=== PATIENT | female | born 2005 | race Caucasian/White ===

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

== ENCOUNTER 2025-06-11 12:41 | Emergency (ER) | payer BC, SELFPAY ==
--- NOTE | 2025-06-11 12:42 | ED.SKABFB ---
HPI - Skin/Abscess/Foreign Bdy General Chief complaint: Animal Bite Stated complaint: dog bite Time Seen by Provider: 06/11/25 13:00 Source: patient, RN notes reviewed and old records reviewed Mode of arrival: ambulatory Limitations: no limitations History of Present Illness HPI narrative: 19-year-old female presents to the [facility] with a abrasion/ puncture to the right lateral calf. States that she was bit by the neighbor's dog. Area is clean and dry. No erythema. Occurred just prior to arrival. Not up-to-date tetanus Related Data Allergies Allergy/AdvReac Type Severity Reaction Status Date / Time No Known Allergies Allergy Verified 06/11/25 13:01 Review of Systems Review of Systems: All systems reviewed & are unremarkable except as noted in HPI and below Constitutional: Constitutional: Reports no additional constitutional complaints ENT: Reports system reviewed and no additional complaints, except as documented Cardiovascular: Cardiovascular: Reports no additional cardiovascular complaints, Denies chest pain and Denies dyspnea Respiratory: Respiratory: Reports no additional respiratory complaints, Denies chest congestion, Denies cough and Denies dyspnea Musculoskeletal: Musculoskeletal: Reports no additional musculoskeletal complaints Integumentary/Breasts: Skin/Breast: Reports as per HPI [facility] Surgical History Surgical History (Updated 01/13/23 @ 11:01 by Meeta Cerrato) History of surgery (~2005) 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 Family History Family History (Updated 01/13/23 @ 11:02 by Meeta Cerrato) Father Hypertension CHF (congestive heart failure) Social History Social History (Updated 01/13/23 @ 10:59 by Meeta Cerrato) Smoking status: Never smoker Substance use: never Lack of Transportation: No Lack of Food: Never True Current Housing: I Have Housing Concerned About Future Housing: No Difficulty Paying Gas/Electric Bills: No Difficulty Paying for Meds: No Currently Unemployed: No Education: High School Diploma/GED Difficulty w/ Childcare or Family Care: No Comments At the time of my signature, I reviewed and agree with the nursing past medical, surgical, social, and family history. There is no relevant family history pertinent to the patient complaint. Exam Const: General: cooperative, healthy appearing, comfortable, no acute distress, well developed, alert and well nourished Nutritional Appearance: well nourished Orientation/consciousness: patient oriented x3 Limitations: no limitations HENMT: Head: normal to inspection Eyes: General: appearance normal, both eyes and all related structures Alignment and Position: alignment normal Neck: Neck: normal visual inspection, full ROM, no lymphadenopathy and no meningeal signs Chest: Chest palpation & inspection: normal inspection of the chest Resp: Effort & Inspection: normal respiratory effort and able to speak in complete sentences Cardio: Rate: regular rate Skin: General skin exam: normal color and no rashes or lesions noted Full body images:  1. 0.5 cm puncture/ abrasion no bleeding. No erythema, no swelling Neuro: General: patient oriented x3, gait normal, moves all extremities and no meningeal signs Cognition (Neuro): normal cognition Speech: normal speech Gait exam (Neuro): Normal gait present Extrem: General: normal to inspection, full ROM, capillary refill normal and normal gait Psych: Appearance: grossly normal and well kempt Mental Status: mental status grossly normal Speech and movement: Normal speech and movement present and Clear speech present Affect: normal affect Attitude: cooperative Course Course Level of Care: Express Care Visit Vital Signs Vital signs: Vital Signs Temperature 97.8 F 06/11/25 12:54 Pulse Rate 76 06/11/25 12:54 Respiratory Rate 16 06/11/25 12:54 Blood Pressure 112/84 06/11/25 12:54 Pulse Oximetry 100 06/11/25 12:54 Oxygen Delivery Room Air 06/11/25 12:54 Temperature 97.8 F 06/11/25 12:54 Pulse Rate 76 06/11/25 12:54 Respiratory Rate 16 06/11/25 12:54 Blood Pressure 112/84 06/11/25 12:54 Pulse Oximetry 100 06/11/25 12:54 Oxygen Delivery Room Air 06/11/25 12:54 Reviewed MDM - Skin/Abscess/Foreign Bdy MDM Narrative Medical decision making narrative: patient sitting in exam room. Patient is nontoxic vitals stable. Patient presents with puncture wound abrasion from a dog tooth that occurred just prior to arrival. Has full range of motion of the knee and ankle. Tdap was updated. Area was cleaned. Patient placed on antibiotics reduce the chances of infection patient appropriate for outpatient treatment and close follow-up Discharge instructions reviewed with patient, as well as provided in writing per nursing staff. The instructions also include specific and strict return/GO TO THE ER as well as f/u information. All questions have been answered, and the patient deny any further questions with discharge and discharge plan. Some parts of this dictation were generated by voice recognition software and may contain typographical and/or grammatical inaccuracies. Differential Diagnosis Differential diagnosis: Likely abscess of skin or subcutaneous tissue, cellulitis and contact dermatitis Critical Care Time Critical Care Time Critical Care Time: No Discharge Plan Discharge Clinical Impression: Dog bite, Vaccine for [id number], combined Patient Disposition: Home Condition: Stable Instructions: Antibiotic Form, Animal Bite (ED) Additional Instructions: wash with warm soapy water 2 to 3 times a day, pat dry. Do not apply any ointments to the area take antibiotics as prescribed rest, ice and elevate take Motrin alternating with Tylenol as needed for pain follow-up with primary care provider Patient Language: Kosovan Prescriptions: New amoxicillin-pot clavulanate 875-125 mg tablet 1 tablet PO Q12H Qty: 14 0RF Follow-up/Referrals: Charles Sawyer MD [Primary Care Provider, Internal Medicine] - 2 Weeks Time of Disposition: 13:08
[2025-06-11 12:54] VITALS: BP 112/84; PULSE 76; RESP 16; TEMP 36.6; O2SAT 100
[2025-06-11] MEDS: TETANUS,DIPHTHERIA,AC PERTUSSIS ADULT (0.5 ML) BOOSTRIX IM (13:07)
== END 2025-06-11 13:27 | disposition home or self-care (01) ==
PROVIDERS: Emergency Provider Nurse Practitioner; PCP Internal Medicine
DX: S80.811A Abrasion, right lower leg, initial encounter (principal); Z23 Encounter for immunization; W54.0XXA Bitten by dog, initial encounter
CPT/HCPCS: 90471; 90715; 99213; G0463

== ENCOUNTER 2025-06-29 13:30 | Outpatient (CLI) | payer BC, SELFPAY ==
--- NOTE | ~2025-06-29 | XR_ITS ---
Examination: XR chest 2V Clinical History: COUGH,FEVER Comparison: None Technique: PA and Lateral Findings: Cardiomediastinal silhouette normal size and configuration. Lungs clear. No acute bony abnormality. IMPRESSION: 1. No acute cardiopulmonary findings. Reviewed, dictated and finalized at location R. STRAPPER
--- OUTSIDE RECORDS SUMMARY | 2025-06-29 14:44 | XMS_ITS | Encounter Summary ---
Author Organization Sincerely [facility] Address [address] [place] [address] Care Team Providers Care Sr. 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
--- OUTSIDE RECORDS SUMMARY | 2025-06-29 14:44 | XMS_ITS | Clinical Summary ---
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
--- OUTSIDE RECORDS SUMMARY | 2025-06-29 14:44 | XMS_ITS | Clinical Summary ---
Author Organization [facility] Address [address] [place] [address] Care Team Providers Care Geoscience Professor Name Role Phone Rayne Salinas MD Primary Care Pro vider Allergies No known active allergies Medications norgestimate-eth inyl estradioL (ORTHO-CYCLEN) 0.25-35 mg-mcg per tablet Take 1 tablet by mouth daily 84 tablet 3 07/29/2023 Active hydrOXYzine (ATARAX) 10 mg tabletIndication s:anxiety Take one tablet (10 mg) every 6 hours as needed for anxiety. 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 She would like to continue. Hx of cold sores 07/29/2023 Dysmenorrhea 02/12/2023 Assessment & Plan (02/12/2023 2:50 PM CDT): Discontinue NuvaRing. Plan to start a combined oral contraceptive pill with next cycle. Usage instructions given, backup method x1 month advised if sexually active. Allow 3-4 months for cycle regulation. Rx for ortho Cyclen x1 pack sent to local pharmacy with additional refills sent to patient's mail order pharmacy. Anxiety 02/12/2023 Assessment & Plan (02/12/2023 2:53 PM CDT): Discussed use of daily treatment with low-dose anti anxiety/depression medication such as Lexapro. Could also consider daily treatment or as needed treatment with buspirone. Patient's mom desires her to start hydroxyzine first to see if this would help her symptoms since they are random, not daily episodes. Receptive to prescribing hydroxyzine to see if symptom management achieved. Patient aware this medication may cause drowsiness so to be careful when first starting medication with driving/activity until she sees how she responds. Social History Tobacco Use Types Packs/Day Years Used Date Smoking Tobacco: Never Tobacco Cessation:Counseling Given: Not Answered Personal Safety Answer Date Recorded Getting School Help Needed Not on file 07/29 Comments No Sex and Gender Information Value Date Recorded Sex Assigned at Not on file Legal Sex Female 11:29 PM PANAMA HAT HYDRAULIC PRESS OPERATOR Gender Identity Not on file Sexual Orientation Not on file Obstetrics History Para Term AB IAB SAB Ectopic Multiple Livin g Live Births 0 0 0 0 0 0 0 0 0 0 0 Last Filed Vital Signs Vital Sign Reading Time Taken Comments Blood Pressure 100/70 07/29/2023 9:01 AM PANAMA HAT HYDRAULIC PRESS OPERATOR Pulse 65 07/29/2023 9:01 AM PANAMA HAT HYDRAULIC PRESS OPERATOR Temperature - - Respiratory Rate - - Oxygen Saturation 100% 08/11/2007 11:48 AM PANAMA HAT HYDRAULIC PRESS OPERATOR Inhaled Oxygen Concentration - - Weight 85.4 kg (188 lb 3.2 oz) 07/29/2023 9:01 A M PANAMA HAT HYDRAULIC PRESS OPERATOR Height 180.3 cm (5' 11) 07/29/2023 9:01 AM PANAMA HAT HYDRAULIC PRESS OPERATOR Body Mass Index 26.25 07/29/2023 9:01 AM PANAMA HAT HYDRAULIC PRESS OPERATOR Plan of Treatment Health Maintenance Due Date Last Done Comments Depression Screening 2004 Hepatitis C Screening 2004 Meningococcal B Vaccine (2 of 2 - Bexsero SCDM 2-dose series) 10/14/2022 04/16/2022 Regular Well Visit/Exam 18-64 02/13/2024 02/12/2023 Covid-19 Vaccine ( - season) 2025 03/05/2021, 02/07/2021 Influenza Vaccine (#1) 2025 7, 04/27/2015, 05/09/2014, Additional history exists DTaP/Tdap/Td Vaccine (7 - Td or Tdap) 02/01/2026 02/02/2016, 12/29/2009, 05/14/2006, Additional history exists Hepatitis B Screening Completed 05/14/2005 , 03/09/2005, 2004, Additional history exists Pneumococcal vaccine <65 Aged Out 006, 05/14/2005, 03/09/2005, Additional history exists No longer eligible based on patient's age to complete this topic Varicella Vaccines Completed 12/29/2009, 11/18/2005 HPV Vaccines Completed 02/03/2020, 12/23/2018 Meningococcal Vaccine Completed 04/16/2022, 016 Care Teams Geoscience Professor Relationship Specialty Start Date End Date Rayne Salinas MD PCP - General 03/24/17
== END 2025-06-29 13:31 | disposition home or self-care (01) ==
LOC: CHSIMG 13:33
PROVIDERS: PCP Internal Medicine; Visit Provider Nurse Practitioner Family
DX: R05.9 Cough, unspecified (principal); R50.9 Fever, unspecified
CPT/HCPCS: 71046